=== PATIENT | female | born 1995 | race Hispanic/Latino ===

== ENCOUNTER 2018-06-25 18:56 | Emergency (ER) | payer OTHER ==
[2018-06-25 19:15] VITALS: BP 144/75
--- NOTE | 2018-06-25 19:18 | Emergency Department Report ---
Chief Complaint: Urogenital-Female Stated Complaint: BACK PAIN/BLOOD CLOT/PAIN Time Seen by Provider: 06/25/18 19:13 - HPI History of Present Illness: Pt is c/o bilateral lumbar paraspinal discomfort that began today (+) heavy vaginal bleeding (+) mild lower abdominal cramping no fever, N/V never had previously no hx of nephrolithiasis no PMHx LNMP: more than three months, not on control, states has irregular cycles (+) sexually active, no protection no vaginal discharge MSE complete MSE screening note: Focused history and physical exam performed. Due to findings the following was ordered: UA, urine ED Disposition for MSE Condition: Stable
[2018-06-25 19:47] LABS: Basophils # (Auto) 0.1 K/mm3 (0.0-0.1); Basophils % (Auto) 0.7 % (0.0-1.8); Eosinophils # (Auto) 0.1 K/mm3 (0.0-0.4); Eosinophils % (Auto) 0.7 % (0.0-4.3); Hematocrit 34.5 % (30.3-42.9); Hemoglobin 12.1 gm/dl (10.1-14.3); Lymphocytes # (Auto) 1.9 K/mm3 (1.2-5.4); Lymphocytes % (Auto) 23.2 % (13.4-35.0); Mean Corpuscular HGB Conc 35 % (30-34); Mean Corpuscular Volume 85 fl (79-97); Monocytes # (Auto) 0.4 K/mm3 (0.0-0.8); Monocytes % (Auto) 4.3 % (0.0-7.3); Platelet Count 256 K/mm3 (140-440); Red Blood Count 4.06 M/mm3 (3.65-5.03); Red Cell Distribution Width 14.7 % (13.2-15.2)
[2018-06-25 19:53] LABS: Bilirubin,Urine NEG (Negative); Blood,Urine LG (Negative); Color,Urine Red (Yellow); Urobilinogen,Urine < 2.0 mg/dL (<2.0)
[2018-06-25 19:54] LABS: HCG Qualitative,Urine Negative (Negative); RBC,Urine > 182.0 /HPF (0.0-6.0)
[2018-06-25 19:58] LABS: BUN/Creatinine Ratio 23; Blood Urea Nitrogen 14 mg/dL (7-17); Calcium 8.8 mg/dL (8.4-10.2); Hemolysis Index 8
[2018-06-25] MEDS ORDERED: ZOFRAN ODT PO ONE (20:42)
[2018-06-25] MEDS ORDERED: ZOFRAN ODT ONE (20:42)
--- NOTE | 2018-06-25 22:39 | Ultrasound Report ---
PROCEDURE: US PELVIC COMPLETE TECHNIQUE: Real-time transabdominal sonography in multiple planes of the pelvis was performed. The p elvic structures were not optimally visualized. Transvaginal sonography was then performed to better evaluate the structures and/or abnormalities described below with image documentation. Grayscale, col or flow Doppler imaging, and velocity spectral waveform analysis of the ovaries was employed (duplex imaging). HISTORY: adnexa pain COMPARISONS: None . FINDINGS: UTERUS Size: 7.6 x 4 x 5.1 cm. Endometrial thickness: 19.7 mm. Orientation: anteverted. Cervix: Normal. Fibroids/masses: None. The ovaries are not identified. Pelvic fluid: None. IMPRESSION: There is endometrial hyperplasia. The ovaries are not identified.. This document is electronically signed by Yevgeniy Rosa MD., June 25 2018 10:37:14 PM ET
--- NOTE | 2018-06-25 23:11 | Emergency Department Report ---
ED Female HPI - General Chief complaint: Urogenital-Female Stated complaint: BACK PAIN/BLOOD CLOT/PAIN Time Seen by Provider: 06/25/18 19:13 Source: patient Mode of arrival: Ambulatory Limitations: No Limitations - History of Present Illness Initial comments: 23-year-old obese female discharge department complaining of a four- day history of low back pain associated with pelvic pain and heavy blood clots as well. She also been been having some some dysuria for but last week. 2. States that she does have abnormal menses with varying degrees of heaviness no known pelvic issues. She reports no nausea, vomiting, fever, chills, sweats MD Complaint: vaginal bleeding, pelvic pain - Related Data Previous Rx's Medication Instructions Recorded Last Taken Type Benzonatate [Tessalon Perles] 100 mg PO Q8HR PRN #30 capsule 04/13/18 Unknown Rx Fluconazole [Diflucan TAB] 150 mg PO ONCE #1 tablet 04/13/18 Unknown Rx Ibuprofen [Motrin] 800 mg PO Q8HR PRN #30 tablet 04/13/18 Unknown Rx Ondansetron [Zofran Odt] 4 mg PO Q8HR #20 tab.rapdis 04/13/18 Unknown Rx Oseltamivir [Tamiflu] 75 mg PO BID #10 cap 04/13/18 Unknown Rx traMADol [Ultram 50 MG tab] 50 mg PO Q6HR PRN #15 tablet 04/13/18 Unknown Rx Ketorolac [Toradol] 10 mg PO Q6H PRN #20 tablet 06/25/18 Unknown Rx Allergies Allergy/AdvReac Type Severity Reaction Status Date / Time No Known Allergies Allergy Verified 04/13/18 14:29 ED Review of Systems ROS: Stated complaint: BACK PAIN/BLOOD CLOT/PAIN Other details as noted in HPI Constitutional: denies: chills, fever Eyes: denies: eye pain, eye discharge, vision change ENT: denies: ear pain, throat pain Respiratory: denies: cough, shortness of breath, wheezing Cardiovascular: denies: chest pain, palpitations Endocrine: no symptoms reported. denies: flushing, intolerance to cold, increased thirst, increased urine, unexplained weight gain Gastrointestinal: denies: abdominal pain, nausea, diarrhea Genitourinary: denies: urgency, dysuria, discharge Musculoskeletal: denies: back pain, joint swelling, arthralgia Skin: denies: rash, lesions Neurological: denies: headache, weakness, paresthesias Psychiatric: denies: anxiety, depression Hematological/Lymphatic: denies: easy bleeding, easy bruising ED Past Medical Hx - Past Medical History Previous Medical History?: No - Surgical History Past Surgical History?: No - Social History Smoking Status: Never Smoker Substance Use Type: None - Medications Home Medications: Home Medications Medication Instructions Recorded Confirmed Last Taken Type Benzonatate [Tessalon Perles] 100 mg PO Q8HR PRN #30 capsule 04/13/18 Unknown Rx Fluconazole [Diflucan TAB] 150 mg PO ONCE #1 tablet 04/13/18 Unknown Rx Ibuprofen [Motrin] 800 mg PO Q8HR PRN #30 tablet 04/13/18 Unknown Rx Ondansetron [Zofran Odt] 4 mg PO Q8HR #20 tab.rapdis 04/13/18 Unknown Rx Oseltamivir [Tamiflu] 75 mg PO BID #10 cap 04/13/18 Unknown Rx traMADol [Ultram 50 MG tab] 50 mg PO Q6HR PRN #15 tablet 04/13/18 Unknown Rx Ketorolac [Toradol] 10 mg PO Q6H PRN #20 tablet 06/25/18 Unknown Rx ED Physical Exam - General Limitations: No Limitations General appearance: alert, in no apparent distress - Head Head exam: Present: atraumatic, normocephalic - Eye Eye exam: Present: normal appearance, PERRL, EOMI Pupils: Present: normal accommodation - ENT ENT exam: Present: normal exam, mucous membranes moist - Neck Neck exam: Present: normal inspection - Respiratory Respiratory exam: Present: normal lung sounds bilaterally. Absent: respiratory distress - Cardiovascular Cardiovascular Exam: Present: regular rate, normal rhythm. Absent: systolic murmur, diastolic murmur, rubs, gallop - GI/Abdominal GI/Abdominal exam: Present: soft, tenderness (tenderness to the suprapubic region with palpation.), normal bowel sounds. Absent: organomegaly, bruit - Extremities Exam Extremities exam: Present: normal inspection - Back Exam Back exam: Present: normal inspection - Neurological Exam Neurological exam: Present: alert, oriented X3 - Psychiatric Psychiatric exam: Present: normal affect, normal mood - Skin Skin exam: Present: warm, dry, intact, normal color. Absent: rash ED Course Vital Signs 06/25/18 19:13 Temperature 97.8 F Pulse Rate 91 H Respiratory 20 Rate Blood Pressure 144/75 O2 Sat by Pulse 100 Oximetry ED Medical Decision Making - Lab Data Result diagrams: 06/25/18 19:23 06/25/18 19:23 - Radiology Data Radiology results: report reviewed (ultrasound shows some endometrial hyperplasia. Advised patient to follow-up with [facility] for definitive management of her dysmenorrhea.) Critical care attestation.: If time is entered above; I have spent that time in minutes in the direct care of this critically ill patient, excluding procedure time. ED Disposition Clinical Impression: Endometrial hyperplasia Disposition: DC-01 TO HOME OR SELFCARE Is pt being admited?: No Does the pt Need Aspirin: No Condition: Stable Instructions: Dysmenorrhea (ED) Prescriptions: Ketorolac [Toradol] 10 mg PO Q6H PRN #20 tablet PRN Reason: Pain Referrals: LA VILLA KAM ESQUIVEL MD [Primary Care Provider] - 3-5 Days [facility] [Provider Group] - 3-5 Days
== END 2018-06-25 23:25 | disposition home or self-care (01) ==
LOC: ED 18:56
DX: N85.00 Endometrial hyperplasia, unspecified (principal)
CPT/HCPCS: 36415; 76830; 76856; 80048; 81001; 81025; 85025; Q0162

== ENCOUNTER 2018-12-15 20:28 | Emergency (ER) | payer SELFPAY ==
[2018-12-15 20:56] VITALS: BP 131/92
--- NOTE | 2018-12-15 20:56 | Event Note ---
ED Screening Note Date of service: 12/15/18 Time: 20:52 ED Screening Note: 23 y/o female comes in for left ankle injury with pain started 2 days ago. This initial assessment/diagnostic orders/clinical plan/treatment(s) is/are subject to change based on patients health status, clinical progression and re- assessment by fellow clinical providers in the ED. Further treatment and workup at subsequent clinical providers discretion. Patient/guardian urged not to elope from the ED as their condition may be serious if not clinically assessed and managed. Initial orders include:
--- NOTE | 2018-12-15 21:30 | XRay Report ---
LEFT ANKLE 3 VIEWS INDICATION / CLINICAL INFORMATION: Left ankle injury with pain. COMPARISON: None available. FINDINGS: BONES and JOINT(S): No acute fracture or subluxation. No significant arthritis. SOFT TISSUES: No significant abnormality. ADDITIONAL FINDINGS: None. IMPRESSION: No acute abnormality of the left ankle. Signer Name: Armando Feliciano MD Signed: 12/15/2018 9:26 PM Workstation Name: [id number]
[2018-12-15] MEDS ORDERED: ULTRAM PO ONE (21:44)
--- NOTE | 2018-12-15 22:07 | Emergency Department Report ---
ED Lower Extremity HPI - General Chief Complaint: Extremity Injury, Lower Stated Complaint: LT ANKLE AND CALF PAIN Time Seen by Provider: 12/15/18 20:52 Source: patient Mode of arrival: Ambulatory Limitations: No Limitations - History of Present Illness Initial Comments: Patient is a 23 female who presents for left-sided pain status post fall yesterday so she stepped and twisted her ankle now 5/10 left lateral ankle pain and exacerbated by walking and standing weight bearing, there is no numbness tingling or deformity. MD Complaint: ankle injury Onset/Timin -: days(s) Injury: Ankle: Left Type of Injury: eversion Place: home Severity: moderate Severity scale (0 -10): 5 Improves With: nothing Worsens With: weight bearing, movement, palpation Context: walking Associated Symptoms: swelling, able to partially bear weight. denies: snap/pop sensation, numbness, tingling - Related Data Previous Rx's Medication Instructions Recorded Last Taken Type Benzonatate [Tessalon Perles] 100 mg PO Q8HR PRN #30 capsule 04/13/18 Unknown Rx Fluconazole [Diflucan TAB] 150 mg PO ONCE #1 tablet 04/13/18 Unknown Rx Ibuprofen [Motrin] 800 mg PO Q8HR PRN #30 tablet 04/13/18 Unknown Rx Ondansetron [Zofran Odt] 4 mg PO Q8HR #20 tab.rapdis 04/13/18 Unknown Rx Oseltamivir [Tamiflu] 75 mg PO BID #10 cap 04/13/18 Unknown Rx traMADol [Ultram 50 MG tab] 50 mg PO Q6HR PRN #15 tablet 04/13/18 Unknown Rx Ketorolac [Toradol] 10 mg PO Q6H PRN #20 tablet 06/25/18 Unknown Rx Cyclobenzaprine [Flexeril] 10 mg PO BID PRN #20 tablet 12/15/18 Unknown Rx Naproxen [Naprosyn] 500 mg PO BID PRN #30 tablet 12/15/18 Unknown Rx Allergies Allergy/AdvReac Type Severity Reaction Status Date / Time No Known Allergies Allergy Verified 04/13/18 14:29 ED Review of Systems ROS: Stated complaint: LT ANKLE AND CALF PAIN Other details as noted in HPI Constitutional: denies: chills, fever Eyes: denies: eye pain, eye discharge, vision change ENT: denies: ear pain, throat pain Respiratory: denies: cough, shortness of breath, wheezing Cardiovascular: denies: chest pain, palpitations Endocrine: no symptoms reported Gastrointestinal: denies: abdominal pain, nausea, diarrhea Genitourinary: denies: urgency, dysuria, discharge Musculoskeletal: as per HPI, joint swelling, arthralgia Skin: denies: rash, lesions Neurological: denies: headache, weakness, paresthesias Psychiatric: denies: anxiety, depression Hematological/Lymphatic: denies: easy bleeding, easy bruising ED Past Medical Hx - Past Medical History Previous Medical History?: Yes Additional medical history: Endometriosis - Surgical History Past Surgical History?: No - Social History Smoking Status: Never Smoker Substance Use Type: None - Medications Home Medications: Home Medications Medication Instructions Recorded Confirmed Last Taken Type Benzonatate [Tessalon Perles] 100 mg PO Q8HR PRN #30 capsule 04/13/18 Unknown Rx Fluconazole [Diflucan TAB] 150 mg PO ONCE #1 tablet 04/13/18 Unknown Rx Ibuprofen [Motrin] 800 mg PO Q8HR PRN #30 tablet 04/13/18 Unknown Rx Ondansetron [Zofran Odt] 4 mg PO Q8HR #20 tab.rapdis 04/13/18 Unknown Rx Oseltamivir [Tamiflu] 75 mg PO BID #10 cap 04/13/18 Unknown Rx traMADol [Ultram 50 MG tab] 50 mg PO Q6HR PRN #15 tablet 04/13/18 Unknown Rx Ketorolac [Toradol] 10 mg PO Q6H PRN #20 tablet 06/25/18 Unknown Rx Cyclobenzaprine [Flexeril] 10 mg PO BID PRN #20 tablet 12/15/18 Unknown Rx Naproxen [Naprosyn] 500 mg PO BID PRN #30 tablet 12/15/18 Unknown Rx ED Physical Exam - General Limitations: No Limitations General appearance: alert, in no apparent distress - Head Head exam: Present: atraumatic, normocephalic, normal inspection - Eye Eye exam: Present: normal appearance, PERRL, EOMI Pupils: Present: normal accommodation - ENT ENT exam: Present: mucous membranes moist - Neck Neck exam: Present: normal inspection, full ROM. Absent: tenderness, lymphadenopathy, thyromegaly - Respiratory Respiratory exam: Present: normal lung sounds bilaterally. Absent: respiratory distress, wheezes, stridor, chest wall tenderness - Cardiovascular Cardiovascular Exam: Present: regular rate, normal rhythm, normal heart sounds. Absent: systolic murmur, diastolic murmur, rubs, gallop - GI/Abdominal GI/Abdominal exam: Present: soft, normal bowel sounds. Absent: distended, tenderness, bruit, hernia - Rectal Rectal exam: Present: deferred - Extremities Exam Extremities exam: Present: normal inspection, full ROM, normal capillary refill, joint swelling. Absent: tenderness, pedal edema, calf tenderness - Expanded Lower Extremity Exam Left Ankle exam: Present: full ROM, tenderness, swelling. Absent: abrasion, lacera tion, ecchymosis, deformity, crepidus, dislocation, erythema, anterior draw sign Foot/Toe exam: Present: normal inspection, full ROM. Absent: tenderness, swelling Neuro vascular tendon exam: Present: no vascular compromise. Absent: pulse deficit, motor deficit, sensory deficit, tendon deficit Gait: Positive: observed and limited by pain - Back Exam Back exam: Present: normal inspection, full ROM. Absent: tenderness, CVA tenderness (R), CVA tenderness (L), muscle spasm, paraspinal tenderness, rash noted - Neurological Exam Neurological exam: Present: alert, oriented X3, CN II-XII intact, normal gait, reflexes normal. Absent: motor sensory deficit - Psychiatric Psychiatric exam: Present: normal affect, normal mood - Skin Skin exam: Present: warm, dry, intact, normal color. Absent: rash ED Course Vital Signs 12/15/18 12/15/18 20:39 21:56 Temperature 97.9 F Pulse Rate 96 H Respiratory 18 16 Rate Blood Pressure 131/92 O2 Sat by Pulse 97 Oximetry ED Lower Extremity MDM - Radiology Data Radiology results: report reviewed, image reviewed Ordering Physician: AGATA WINN Date of Service: 12/15/18 Procedure(s): XR ankle 3+V LT Accession Number(s): [id number] cc: AGATA WINN Fluoro Time In Minutes: LEFT ANKLE 3 VIEWS INDICATION / CLINICAL INFORMATION: Left ankle injury with pain. COMPARISON: None available. FINDINGS: BONES and JOINT(S): No acute fracture or subluxation. No significant arthritis. SOFT TISSUES: No significant abnormality. ADDITIONAL FINDINGS: None. IMPRESSION: No acute abnormality of the left ankle. Signer Name: Armando Feliciano MD Signed: 12/15/2018 9:26 PM Workstation Name: [id number] Transcribed By: [place] Dictated By: Armando Feliciano MD Electronically Authenticated By: Armando Felciiano MD Signed Date/Time: 12/15/182125 DD/ 24 TD/TT: - Medical Decision Making xray neg for fracture neg durán's test distal pulses +2 bilat no minimal swelling no ecchymosis plan, dc to home with rx for nsaids RICE therapy follow up with pcp in 2-3 days ankle exercises , pt is ambulatory at this time. Critical care attestation.: If time is entered above; I have spent that time in minutes in the direct care of this critically ill patient, excluding procedure time. ED Disposition Clinical Impression: Left ankle strain Qualifiers: Encounter type: initial encounter Qualified Code(s): S96.912A - Strain of unspecified muscle and tendon at ankle and foot level, left foot, initial encounter Disposition: DC-01 TO HOME OR SELFCARE Is pt being admited?: No Does the pt Need Aspirin: No Condition: Stable Instructions: Ankle Exercises (GEN) Prescriptions: Cyclobenzaprine [Flexeril] 10 mg PO BID PRN #20 tablet PRN Reason: Spasms Naproxen [Naprosyn] 500 mg PO BID PRN #30 tablet PRN Reason: pain Referrals: [facility]ARIO [facility] MD PEGGY [Primary Care Provider] - 3-5 Days Forms: Work/School Release Form(ED) Time of Disposition: 22:21
== END 2018-12-15 22:33 | disposition home or self-care (01) ==
LOC: ED 20:28
DX: S96.912A Strain of unspecified muscle and tendon at ankle and foot level, left foot, initial encounter (principal); Z79.899 Other long term (current) drug therapy; W19.XXXA Unspecified fall, initial encounter; Y93.89 Activity, other specified; Y92.89 Other specified places as the place of occurrence of the external cause; Y99.8 Other external cause status